=== PATIENT | male | born 1965 | race Caucasian/White ===

== ENCOUNTER 2022-05-12 06:42 | Emergency (ER) | payer SELFPAY ==
[2022-05-12 06:44] VITALS: BP 142/98; PULSE 98; RESP 18; TEMP 36.9; O2SAT 99; BMI 20.3
--- NOTE | 2022-05-12 07:18 | EX.ED.DYSGE1 ---
HPI History of Present Illness Chief Complaint: General Illness Informant: patient Onset/Context/Timing Onset: Days (5) Context: Gradual Onset Timing: Continuous Quality: Lightheaded Location: Generalized Worsened by: Insomnia Relieved by: Nothing Narrative Narrative: Patient presents with lightheadedness and dizziness that has been getting worse over the last 5 days. Patient states he feels like he is going to pass out. Patient states he has been having difficulty sleeping over the last 5 days. Patient states that his insomnia seems to be making his dizziness worse. Patient states nothing makes it better. Patient denies any fevers or chills. Patient states he had some diarrhea a few days ago but this has resolved. Patient denies any nausea or vomiting. Patient denies any chest pain or shortness of breath. PFSH PFSH Medical History no medical history no medical history Home Medications multivitamin 1 cap PO DAILY 05/12/22 [History Last Taken Unknown] Allergy/AdvReac Type Severity Reaction Status Date / Time No Known Allergies Allergy Verified 05/12/22 06:49 Surgical History H/O vasectomy History of appendectomy Social History Smoking Status: Former smoker ROS ROS ED Constitutional Constitutional ED: Denies chills or fever(s) Eyes Eyes: Denies blurry vision or change in vision ENT ENT ED: Reports sore throat; Denies rhinorrhea Cardiovascular Cardiovascular: Denies chest pain or palpitations Respiratory/Chest Respiratory/Chest: Denies cough or dyspnea Gastrointestinal Gastrointestinal: Reports diarrhea; Denies nausea or vomiting Genitourinary Genitourinary ED: Denies dysuria or hematuria Musculoskeletal Musculoskeletal: Reports neck pain; Denies back pain Integumentary Denies abscess or rash Neurologic Neurologic: Denies headache(s) or weakness Allergic/Immunologic Allergic/Immunologic ED: Denies mouth swelling or urticaria EXAM Physical Exam Const Vital Signs: 05/12/22 06:44 05/12/22 06:47 Temperature 98.5 F Temperature Source Temporal Pulse Rate 98 Respiratory Rate 18 Respiratory Effort Normal Respiratory Pattern Normal Blood Pressure 142/98 H Blood Pressure Mean 112 Pulse Ox 99 Oxygen Delivery Method Room Air Positive well nourished and well developed General Appearance ED: well developed HEENT Reports moist mucous membranes Neck supple and no JVD Resp normal respiratory effort and clear to auscultation bilaterally Cardio regular rhythm and no murmurs Rate: tachycardic GI normal to inspection, nondistended, normoactive bowel sounds and non-tender Palpation: soft Extremity normal to inspection General Extremety ED: Negative for edema or tenderness General Extremity: Negative for edema Neuro oriented x3, CN's II-XII intact bilaterally and no sensory deficits noted Sensorium / Orientation: alert Motor Exam: strength 5/5 throughout Psych mental status grossly normal Mood & Affect: anxious Skin no rashes or lesions noted MDM MDM MDM Narrative Medical decision making narrative: Patient was given IV fluids. EKG was obtained. On my interpretation, it showed a sinus tachycardia with a rate of 119. ID interval, QRS interval, and QTc intervals were all normal. [place] was normal. There are no acute ST or T wave changes. CBC shows a white blood cell count of 3.5. Hemoglobin was 17.3. PT with INR was within normal limits. Comprehensive metabolic profile was essentially within normal limits. High-sensitivity troponin was normal. Lactate was elevated at 3.9. COVID-19 rapid antigen was obtained and was positive. Influenza A and influenza B antigens were obtained and were negative. Patient does not meet criteria for Paxlovid. Patient was instructed to drink plenty of fluids. Patient was instructed to take Tylenol or ibuprofen as needed for any pain or fevers. Patient was instructed to follow-up with his primary care physician in 5 to 7 days. Patient understood and was agreeable with the plan. All questions were answered. Lab Data Attestation: I reviewed the patient's lab results. Labs: Laboratory Results - last 24 hr 05/12/22 05/12/22 05/12/22 07:34 07:34 07:34 WBC 3.5 L RBC 5.47 Hgb 17.3 H Hct 48.8 MCV 89.2 MCH 31.6 MCHC 35.5 RDW Std Deviation 39.4 RDW Coeff of Dimitry 11.9 Plt Count 199 MPV 11.0 Immature Gran % (Auto) 0.000 Neut % (Auto) 43.1 L Lymph % (Auto) 34.9 Day % (Auto) 21.1 H Eos % (Auto) 0.3 Baso % (Auto) 0.6 Absolute Neuts (auto) 1.5 L Absolute Lymphs (auto) 1.22 Nucleated RBC % 0 PT 12.7 INR 1.0 Sodium 134 L Potassium 3.4 L Chloride 96 L Carbon Dioxide 27.0 Anion Gap 11 BUN 10 Creatinine 1.16 Estim Creat Clear Calc 74.42 Est GFR (MDRD) Af Amer 83 Est GFR (MDRD) Non-Af 69 BUN/Creatinine Ratio 8.6 L Glucose 120 H Lactic Acid Calcium 9.1 Total Bilirubin 0.70 AST 31 ALT 42 Alkaline Phosphatase 88 Troponin I High Sens 8 Total Protein 8.1 Albumin 4.1 Globulin 4.0 Albumin/Globulin Ratio 1.0 05/12/22 07:34 WBC RBC Hgb Hct MCV MCH MCHC RDW Std Deviation RDW Coeff of Dimitry Plt Count MPV Immature Gran % (Auto) Neut % (Auto) Lymph % (Auto) Day % (Auto) Eos % (Auto) Baso % (Auto) Absolute Neuts (auto) Absolute Lymphs (auto) Nucleated RBC % PT INR Sodium Potassium Chloride Carbon Dioxide Anion Gap BUN Creatinine Estim Creat Clear Calc Est GFR (MDRD) Af Amer Est GFR (MDRD) Non-Af BUN/Creatinine Ratio Glucose Lactic Acid 3.9 H* Calcium Total Bilirubin AST ALT Alkaline Phosphatase Troponin I High Sens Total Protein Albumin Globulin Albumin/Globulin Ratio EKG Initial EKG: Attestation: I personally reviewed and interpreted this EKG as follows: Interpretation: Sinus Tachycardia (119) and Non-Specific ST Changes Prior EKG tracings: not available for review Prior: No Prior Discharge Plan Triage Chief Complaint: General Illness Other Complaint: Dizziness ED Provider: Torrey Joseph Dx/Rx/DC Orders Clinical Impression: COVID-19 Instructions: Coronavirus Disease 2019 (COVID-19): Caring for Yourself or Others Prescriptions: No Action multivitamin Capsule 1 cap PO DAILY Primary Care Provider: Care Physician,No Primary Referrals: Airam Carolina DO [Med Staff - Irrigation Installation Specialist] - 3-5 Days Care Physician,No Primary [Primary Care Provider] - Disposition Disposition: Home, Self Care
--- NOTE | 2022-05-12 07:21 | EKG12_ITS ---
Test Reason : SYNCOPE Blood Pressure : / mmHG Vent. Rate : 119 BPM Atrial Rate : 119 BPM P-R Int : 128 ms QRS Dur : 080 ms QT Int : 304 ms P-R-T Axes : 079 119 072 degrees QTc Int : 427 ms Poor data quality, interpretation may be adversely affected Sinus tachycardia Biatrial enlargement Right axis deviation Anterior infarct , age undetermined Abnormal ECG Confirmed by NYLA INFANTE MD ([id number]), legal editor BARB MARRERO ([id number]) on 05/13/2022 9:20:47 AM Referred By: Confirmed By:NYLA INFANTE MD
[2022-05-12] MEDS: 0.9% Normal Saline 1,000 ML 1000 ML IV ×2 (07:33→08:49)
[2022-05-12 07:45] LABS: Absolute Lymphocyte Count 1.22 X10^3/uL (0.83-4.51); Absolute Neutrophil Count 1.5 X10^3/uL (2.0-7.7); Basophil# 0.02 X10^3/uL; Basophil% 0.6 % (0-1); Eosinophil# 0.01 X10^3/uL; Eosinophils% 0.3 % (0-5); Hematocrit 48.8 % (40-54); Hemoglobin 17.3 g/dL (13.0-16.5); Lymphocyte # 1.22 X10^3/ul (0.83-4.51); Lymphocyte % 34.9 % (19-41); Mean Corp Hgb Conc 35.5 g/dL (32-36); Mean Corpuscular Hgb 31.6 pg (27.0-32.0); Mean Corpuscular Volume 89.2 fL (80-94); Monocyte# 0.74 X10^3/uL; Monocyte% 21.1 % (0-10); NRBC Flagged by Analyzer 0 % (0-5); Neutrophil # 1.51 X10^3/uL (2.7-7.7); Neutrophil % 43.1 % (47-70); Platelet Count 199 K/mm3 (150-450); RBC Distribution Width CV 11.9 % (11.6-14.6); RBC Distribution Width SD 39.4 fl (35.1-43.9); Red Blood Count 5.47 M/mm3 (4.6-6.2); White Blood Count 3.5 K/mm3 (4.4-11.0)
[2022-05-12 08:03] LABS: AST(SGOT) 31 U/L (15-37); Alanine Aminotransfer ALT/SGPT 42 U/L (16-61); Albumin, Serum 4.1 g/dL (3.2-5.0); Alkaline Phosphatase 88 U/L (45-117); Anion Gap 11 (5-15); BUN 10 mg/dL (7-18); BUN/Creat Ratio 8.6 RATIO (10-20); Calcium,Total 9.1 mg/dL (8.5-10.1); Chloride 96 mmol/L (98-107); Creatinine, Serum 1.16 mg/dL (0.70-1.30); EST Glomerular Filtration Rate 69 mL/min (>60); Est Glom Filt Rate - Afr Amer 83 mL/min (>60); Estimated Creatinine Clearance 74.42 ml/min; Glucose 120 mg/dL (74-106); Potassium 3.4 mmol/L (3.5-5.1); Protein, Total 8.1 g/dL (6.4-8.2); Sodium Level 134 mmol/L (136-145); Troponin-I HS 8 pg/mL (3.0-78.0)
[2022-05-12 08:22] LABS: Lactic Acid 3.9 mmol/L (0.4-1.9)
[2022-05-12 09:00] LABS: Prothrombin Time (Protime)PT. 12.7 SECONDS (11.7-14.9)
[2022-05-12 09:15] VITALS: BP 138/91; PULSE 88; RESP 16; O2SAT 99
[2022-05-12 11:42] LABS: Reflex Lactate? Y
[2022-05-12 13:27] LABS: Partial Thromboplast Time 30.5 Seconds (24.1-36.2)
== END 2022-05-12 09:52 | disposition home or self-care (01) ==
PROVIDERS: Emergency Provider Emergency Medicine; Visit Provider Emergency Medicine
DX: U07.1 COVID-19 (principal); R42 Dizziness and giddiness; R19.7 Diarrhea, unspecified; G47.00 Insomnia, unspecified; J02.9 Acute pharyngitis, unspecified; M54.2 Cervicalgia; Z87.891 Personal history of nicotine dependence
CPT/HCPCS: 80053; 83605; 84484; 85025; 85610; 85730; 87428; 93005; 96360; 96361; 99283; J7030; A4216